=== PATIENT | male | born 1965 | race Caucasian/White ===

== ENCOUNTER → 2016-09-08 09:25 | Outpatient (CLI) | payer MEDICAID ==
[2016-08-04 12:56] VITALS: BMI 26.0
[~2016-09-08 09:25] MED LIST: ATIVAN0.5 MG PO; DURAGESIC1 PATCH .2 TRANSDERM; DURAGESIC1 PATCH .3 TRANSDERM; DURAGESIC1 PATCH .7 TRANSDERM; ENDOCET 10-3251 TAB PO; GABAPENTIN100 MG PO; HYDROCODONE-APA1 TAB PO; IPRAT-ALBUT 0.5-3 ML INH; K-DUR20 MEQ PO; LEVAQUIN750 MG PO; LOPRESSOR25 MG PO; NICODERM C1 PATCH .2 TRANSDERM; PERCOCET 10/3251 TA1 PO; POTASSIUM CHLO10 ME1 PO; PROMETHAZINE W473 M1 PO; PROTONIX40 MG PO; PROVENTIL HFA6.7 GM INH; STERAPRED DS 1210 MG PO; TESSALON PERLE100 MG PO; VITAMIN B650 MG PO; XARELTO15 MG PO; ZOFRAN ODT4 MG/UDTAB PO
== END | disposition home or self-care (01) ==
LOC: D.RAD 09:25
DX: Z09 Encounter for follow-up examination after completed treatment for conditions other than malignant neoplasm (principal)

== ENCOUNTER 2016-09-09 11:30 | Outpatient (CLI) | payer MEDICAID ==
[~2016-09-09] VITALS: Ht 170.2 cm; Wt 70.9 kg
[~2016-09-09 11:30] MED LIST changes: -ATIVAN0.5 MG PO; -DURAGESIC1 PATCH .2 TRANSDERM; -DURAGESIC1 PATCH .3 TRANSDERM; -DURAGESIC1 PATCH .7 TRANSDERM; -PERCOCET 10/3251 TA1 PO; -POTASSIUM CHLO10 ME1 PO; -PROMETHAZINE W473 M1 PO; -VITAMIN B650 MG PO; -ZOFRAN ODT4 MG/UDTAB PO
--- NOTE | 2016-09-09 13:48 | NUR ---
[id number] GREENFIELD CALLED AND NOTIFIED OF PTS PAIN,NEW ORDER RECEIVED FOR DILAUDID 2MG PO NOW AND TO CALL BACK IF PAIN IS NOT BETTER
[2016-09-09] MEDS ORDERED: DURAGESIC1 PATCH .2 TRANSDERM (13:55)
[2016-09-09] MEDS ORDERED: PERCOCET 10/3251 TA1 PO (13:56)
[2016-09-09 14:01] VITALS: BP 97/70; Ht 170.2 cm; Wt 70.9 kg
--- NOTE | 2016-09-09 14:04 | NUR ---
LEFT UPPER CHEST PORT ACCESSED BY RONALD RN WITH A .75 20 GAUGE DENNIS NEEDLE ON THE FIRST ATTEMPT FLUSHED WITHOUT ANY PROBLEMS ALL UNDER STERILE TECHNIQUE INFUSING NS WITHOUT ANY DIFFICULTIES SECURED WITH TEGADERM
--- NOTE | 2016-09-09 20:03 | NUR ---
1450 REPORT FROM HUMERA SMITH R.N. PATIENT RECEIVING 1ST UNIT OF BLOOD VIA LT PORT CHEST WALL. DRESSING C/D/I DIAZ VERY SLEEPY AND RESP NONLABORED. O2 AT 3 L N/C.EYES CLOSED.
--- NOTE | 2016-09-09 20:04 | NUR ---
1535 REMAINS SLEEPING WITH EYES CLOSED BLOOD INFUSING WITHOUT S/S OF BLOOD REACTIONS NOTED.
--- NOTE | 2016-09-09 20:05 | NUR ---
1635 REMAINS DOZING BUT DID ROUSE. NO S/S OF BLOOD REACTIONS NOTED.
--- NOTE | 2016-09-09 20:05 | NUR ---
1705 TRAY SERVED. 1ST UNIT OF BLOOD COMPLETED AND FLUSHED WITH N/S. PORT LEFT NO REDNESS OR SWELLING.
--- NOTE | 2016-09-09 20:06 | NUR ---
1740 BLOOD INFUSING NO S/S OF BLOOD REACTIONS NOTED, LT CHEST WALL NO REDNESS OR SWELLING.
--- NOTE | 2016-09-09 20:06 | NUR ---
1725 2ND UNIT OG BLOOD STARTED WITH NEW BLOOD TUBING AND CHECKED BY 2 R.N.S.
--- NOTE | 2016-09-09 20:07 | NUR ---
1840 REQUESTED A MILK STILL SLEEPY AND DOZING.NO S/S OF BLOOD REACTIONS NOTED.
--- NOTE | 2016-09-09 20:08 | NUR ---
1924 BLOOD 2ND UNIT OF BLOOD COMPLETED AND FLUSHED WITH N/SArsalan JACOBSEN.
--- NOTE | 2016-09-09 20:09 | NUR ---
Alan FLUSHED PORT WITH SALINE AND HEPARIN AND JEANNIE DUCKWORTH DCD WITH CATHETER INTACT.
--- NOTE | 2016-09-09 20:29 | NUR ---
1825 V/S TAKEN. DISCHARGE INSTRCUTIONS GONE OVER AND WENT OVER POST BLOOD TRANSFUSION SHEET.
--- NOTE | 2016-09-09 20:30 | NUR ---
1830 TO HOME VIA W/C WITH FAMILY.
== END 2016-09-09 20:30 | disposition home or self-care (01) ==
LOC: D.OPS 11:30
DX: C34.90 Malignant neoplasm of unspecified part of unspecified bronchus or lung (principal)

== ENCOUNTER 2016-09-30 09:56 | Outpatient (CLI) | payer MEDICAID ==
[~2016-09-30] VITALS: Ht 170.2 cm; Wt 66.4 kg
[~2016-09-30 09:56] MED LIST changes: +DURAGESIC1 PATCH .2 TRANSDERM; +PERCOCET 10/3251 TA1 PO
[2016-09-30 14:45] VITALS: BP 112/67; Ht 170.2 cm; Wt 66.4 kg
--- NOTE | 2016-09-30 15:10 | NUR ---
RECEIVED CARE. SECOND UNIT OF PLATELETS UP WITH NS AND BLOOD TUBING.
--- NOTE | 2016-09-30 15:45 | NUR ---
UP TO BATHROOM, GAIT STEADY, VOIDED WITHOUT DIFFICULTY.
--- NOTE | 2016-09-30 16:00 | NUR ---
SECOND UNIT OF PLATELETS COMPLETED, LINE FLUSHED WITH NS.
--- NOTE | 2016-09-30 16:45 | NUR ---
INFUSAPORT FLUSHED PER PROTOCOL AND DISCONTINUED, NO BLEEDING NOTED. BANDAID OVER SITE. DISCHARGE INSTRUCTIONS GIVEN.
--- NOTE | 2016-09-30 17:00 | NUR ---
VITAL SIGNS STABLE, DISCHARGED HOME VIA .
== END 2016-09-30 17:00 | disposition home or self-care (01) ==
LOC: D.OPS 09:56
DX: D69.6 Thrombocytopenia, unspecified (principal)

== ENCOUNTER 2016-10-05 20:21 | Emergency (ER) | payer MEDICAID ==
[2016-09-30 14:45] VITALS: BMI 22.9
== END 2016-10-05 22:07 | disposition home or self-care (01) ==
LOC: D.ER 20:21
DX: K59.00 Constipation, unspecified (principal); M54.9 Dorsalgia, unspecified; J90 Pleural effusion, not elsewhere classified; J44.9 Chronic obstructive pulmonary disease, unspecified; R79.89 Other specified abnormal findings of blood chemistry; K21.9 Gastro-esophageal reflux disease without esophagitis; I10 Essential (primary) hypertension; C34.90 Malignant neoplasm of unspecified part of unspecified bronchus or lung; F17.200 Nicotine dependence, unspecified, uncomplicated

== ENCOUNTER 2016-10-13 11:11 | Inpatient (IN) | payer MEDICAID ==
[~2016-10-13] VITALS: Ht 170.2 cm; Wt 68.0 kg
--- NOTE | 2016-10-13 11:30 | NUR ---
RECEIVED TO ROOM 2214 AT THIS TIME FROM THE DOCTOR'S OFFICE VIA WHEELCHAIR. PT'S SISTER WITH PT. LEFT CHEST PORT ACCESSED WITH 19G 1 INCH DENNIS NEEDLE AT THIS TIME. PT TOLERATED WITH MINIMAL C/O PAIN. BRISK BLOOD RETURN PRESENT. ASSSESSMENT AND HISTORY OBTAINED PER FLOWSHEET. PAIN LEVEL 10/10 AT THIS TIME. CALL LIGHT IN REACH, WILL CONTINUE WITH PLAN OF CARE.
[2016-10-13 11:39] VITALS: BP 114/62
[2016-10-13] MEDS ORDERED: DURAGESIC1 PATCH .7 TRANSDERM (11:56)
[2016-10-13] MEDS ORDERED: ZOFRAN ODT4 MG/UDTAB PO (11:58)
[2016-10-13] MEDS ORDERED: LOPRESSOR25 MG PO (11:58)
[2016-10-13] MEDS ORDERED: VITAMIN B650 MG PO (11:59)
[2016-10-13] MEDS ORDERED: PROMETHAZINE W473 M1 PO (12:00)
[2016-10-13] MEDS ORDERED: POTASSIUM CHLO10 ME1 PO (12:01)
[2016-10-13] MEDS ORDERED: ATIVAN0.5 MG PO (12:01)
[2016-10-13 12:02] VITALS: BP 114/62; BMI 23.5
--- NOTE | 2016-10-13 12:38 | NUR ---
PT GIVEN PERCOCET 10MG X 2 FOR GENERALIZED DISCOMFORT.
[2016-10-13 12:59] LABS: BASOPHILS 0.3 % (0.0-2.0); EOSINOPHILS 0.3 % (0-7); HEMATOCRIT 23.2 % (42.0-54.0); IMMATURE GRANULOCYTES 4.3 % (0-5); LYMPHOCYTES 4.3 % (15-50); MCH 28.5 pg (26.0-34.0); MCHC 30.6 g/dL (31.0-37.0); MCV 93.2 fL (80.0-100.0); MEAN PLATELET VOLUME 9.2 fL (7.4-10.4); NEUTROPHILS 77.8 % (40-80); RBC 2.49 10x6/uL (4.20-6.10); RDW 16.9 % (11.5-14.5); WBC 17.6 10x3/uL (4.8-10.8)
[2016-10-13 13:02] LABS: HEMOGLOBIN 7.1 g/dL (13.5-17.5); PLATELET COUNT 404 10x3/uL (130-400)
[2016-10-13 13:31] LABS: ALBUMIN 1.8 g/dL (3.4-5.0); ALKALINE PHOSPHATASE 414 U/L (46-116); ALT (SGPT) 16 U/L (10-68); BILIRUBIN - TOTAL 1.02 mg/dL (0.2-1.3); CALC OSMOLALITY 269 mosm/kg (275-300); CALCIUM 8.9 mg/dL (8.5-10.1); CARBON DIOXIDE 33.6 mmol/L (21.0-32.0); CHLORIDE - SERUM 95 mmol/L (98-107); GLUCOSE 168 mg/dL (74-106); POTASSIUM - SERUM 3.7 mmol/L (3.5-5.1); PROTEIN - SERUM 6.9 g/dL (6.4-8.2); SODIUM 133 mmol/L (136-145); UREA NITROGEN 12 mg/dL (7-18); eGFR NON AFRICAN AMERICAN 84 mL/min (90-120)
[2016-10-13 13:52] LABS: MAGNESIUM - SERUM 0.9 mg/dL (1.8-2.4)
--- NOTE | 2016-10-13 15:17 | NUR ---
Patient Name: JESI PORTER Admission Status: Urgent Accout number: [id number] Admission Date: 10-13-2016 : 1965 Admission Diagnosis: Attending: CIERA Current LOS: 1 Anticipated DC Date: 10-17-2016 Planned Disposition: Home with Home Health Primary Insurance: [place] Discharge Planning Comments: CM MET WITH PATIENT REGARDING D/C NEEDS AND PLANS. PATIENT STATED HE LIVES WITH HIS SISTER (BRENNAN) AND SHE WILL DRIVE HIM HOME AT DISCHARGE. PATIENT STATES HE IS INDEPENDENT WITH HIS CARE AND HAS A WALKER, WHEELCHAIR, SHOWER CHAIR, PORTABLE O2, NEBULIZER, AND OXYGEN AT HOME. PATIENT CANNOT REMEMBER WHO SUPPLIES HIS OXYGEN. PATIENTS PCP IS DR. KENT, AND PHARMACY IS [facility]. PATIENT SIGNED WITH [employer]. CM WILL CONTINUE TO FOLLOW PATIENT WITH D/C NEEDS AND PLANS. PCP DR. KENT [facility]- [phone] BRENNAN (SISTER) [phone] Speech Pathologist: Noreen Amaya Is the patient Alert and Oriented? Yes 0 * How many steps to enter\exit or inside your home? 0 0 * PCP DR. KENT 0 * Pharmacy [facility] 0 * Preadmission Environment Home with Family 0 * ADLs Independent 0 * Equipment Nebulizer Oxygen Shower Chair Walker Wheelchair 0 * List name and contact numbers for known caregivers / representatives who currently or will assist patient after discharge: BRENNAN HOPKINS (SISTER) [phone] 0 * Community resources currently utilized None 0 * Additional services required to return to the preadmission environment? Yes 0 * Can the patient safely return to the preadmission environment? Yes 0 * Has this patient been hospitalized within the prior 30 days at any hospital? No 0 Grand Total: 0
[2016-10-13 15:45] VITALS: BP 112/67
--- NOTE | 2016-10-13 18:04 | NUR ---
PRN PERCOCET ADMINISTERED PER ORDER FOR PAIN 06/06. ZOFRAN ADMINISTERED PER ORDER FOR NAUSEA WITH EMESIS, ROUGHLY 10-15 ML. FRIEND AT BEDSIDE. DENIES FURTHER NEEDS. WILL CONTINUE WITH PLAN OF CARE.
[2016-10-13 20:00] VITALS: BP 115/66
--- NOTE | 2016-10-13 20:42 | NUR ---
REC'D. IN BED DENIES ANY DISCOMFORT AT PRESENT TIME.DR GREENFIELD HERE. WILL CONTINUE TO MONITOR FOR ANY CHGES. AND FOLLOE CURRENT PLAN OF CARE.
--- NOTE | 2016-10-13 22:44 | NUR ---
ASLEEP WITH NO DISTRESS NOTED. DOOR OPEN SO NURSE CAN MONITOR. EASY RESPIRATIONS AND NO COMPLAINTS NOTED. THE BED IS LOW, RAILS UP X'S 2 WITH THE CALL LIGHT AT AHND.
[2016-10-14] VITALS (23 sets, daily range): BP systolic 86–148; BP diastolic 53–90; Ht 170.2 cm; Wt 68.0 kg
--- NOTE | 2016-10-14 07:45 | NUR ---
PATIENT RECEIVED ALERT IN HIGH CALDERON POSITION. RESPIRATIONS EVEN AND UNLABORED. RATES PAIN 10/10. SIDE RAILS UP X2. BED IN LOW POSITION. CALL LIGHT IN REACH. WILL CONTINUE TO MONITOR.
--- NOTE | 2016-10-14 08:15 | NUR ---
PATEINT ALERT IN HIGH ACLDERON POSITION. RESPIRATIONS EVEN AND UNLABORED. SCHEDULED MEDICATION ADMINISTERED. PERCOCET ADMINISTERED PER PRN ORDER. NO FURTHER NEEDS VOICED. SIDE RAILS UP X2. BED IN LOW POSITION. CALL LIGHT IN REACH.
[2016-10-14] MEDS ORDERED: DURAGESIC1 PATCH .3 TRANSDERM (11:38)
[2016-10-14 11:54] LABS: BASOPHILS 0.4 % (0.0-2.0); EOSINOPHILS 0.2 % (0-7); HEMATOCRIT 23.1 % (42.0-54.0); IMMATURE GRANULOCYTES 3.5 % (0-5); LYMPHOCYTES 6.1 % (15-50); MCH 28.2 pg (26.0-34.0); MCHC 30.3 g/dL (31.0-37.0); MCV 93.1 fL (80.0-100.0); MONOCYTES 17.6 % (2-11); NEUTROPHILS 72.2 % (40-80); PLATELET COUNT 372 10x3/uL (130-400); RBC 2.48 10x6/uL (4.20-6.10); RDW 17.5 % (11.5-14.5); WBC 22.1 10x3/uL (4.8-10.8)
[2016-10-14 12:39] LABS: ALBUMIN 1.8 g/dL (3.4-5.0); ALKALINE PHOSPHATASE 384 U/L (46-116); ALT (SGPT) 15 U/L (10-68); BILIRUBIN - TOTAL 0.96 mg/dL (0.2-1.3); CALCIUM 8.7 mg/dL (8.5-10.1); CARBON DIOXIDE 32.7 mmol/L (21.0-32.0); CHLORIDE - SERUM 95 mmol/L (98-107); CREATININE - SERUM 1.1 mg/dL (0.6-1.3); MAGNESIUM - SERUM 1.1 mg/dL (1.8-2.4); PHOSPHOROUS 4.5 mg/dL (2.5-4.9); SODIUM 131 mmol/L (136-145); UREA NITROGEN 11 mg/dL (7-18); eGFR NON AFRICAN AMERICAN 75 mL/min (90-120)
[2016-10-14 12:40] LABS: CALC OSMOLALITY 261 mosm/kg (275-300); GLUCOSE 104 mg/dL (74-106); POTASSIUM - SERUM 4.7 mmol/L (3.5-5.1)
--- NOTE | 2016-10-14 12:45 | NUR ---
PATIENT ALERT IN BED EATING LUNCH. TOLERATING WELL. SIDE RAILS UP X2. BED IN LOW POSITION. CALL LIGHT IN REACH.
--- NOTE | 2016-10-14 14:20 | NUR ---
1ST UNIT PRBC INITIATED PER ORDER. INFUSING TO LEFT INFUSAPORT WITHOUT DIFFICULTY. VITAL SIGNS STABLE. SIDE RAILS UP X1. BED IN LOW POSITION. CALL LIGHT IN REACH.
--- NOTE | 2016-10-14 17:05 | NUR ---
FIRST UNIT PRBC COMPLETE WITHOUT DIFFICULTIES. VITAL SIGNS STABLE. SIDE RAILS UP X2. BED IN LOW POSITION. CALL LIGHT IN REACH.
--- NOTE | 2016-10-14 18:15 | NUR ---
SECOND UNIT PRBC INITIATED. TRANSFUSING TO LEFT INFUSAPORT WITHOUT DIFFICULTY. VITAL SIGNS STABLE. SIDE RAILS UP X2. BED IN LOW POSITION. CALL LIGHT IN REACH.
--- NOTE | 2016-10-14 19:40 | NUR ---
PATIENT RECEIVING BLOOD. NO SIGNS OF DISTRESS. BROUGHT PATIENT A DRINK PER HIS REQUEST. PATIENT DENIES OTHER NEEDS AT THIS TIME. BED IN LOWEST POSITION AND CALL LIGHT WITHIN REACH.
[2016-10-15 01:17] VITALS: BP 95/71
[2016-10-15 04:00] VITALS: BP 90/63
[2016-10-15 05:25] LABS: BASOPHILS 0.7 % (0.0-2.0); EOSINOPHILS 0.5 % (0-7); HEMATOCRIT 31.4 % (42.0-54.0); HEMOGLOBIN 10.4 g/dL (13.5-17.5); IMMATURE GRANULOCYTES 5.2 % (0-5); MCH 29.5 pg (26.0-34.0); MCHC 33.1 g/dL (31.0-37.0); MEAN PLATELET VOLUME 9.5 fL (7.4-10.4); MONOCYTES 20.9 % (2-11); NEUTROPHILS 68.7 % (40-80); PLATELET COUNT 398 10x3/uL (130-400); RBC 3.53 10x6/uL (4.20-6.10); RDW 18.3 % (11.5-14.5); WBC 21.3 10x3/uL (4.8-10.8)
[2016-10-15 05:58] LABS: ALBUMIN 1.9 g/dL (3.4-5.0); ANION GAP 8.2 mmol/L (8-16); BILIRUBIN - TOTAL 2.07 mg/dL (0.2-1.3); CALCIUM 9.4 mg/dL (8.5-10.1); CARBON DIOXIDE 32.6 mmol/L (21.0-32.0); CREATININE - SERUM 1.2 mg/dL (0.6-1.3); PHOSPHOROUS 4.5 mg/dL (2.5-4.9); PROTEIN - SERUM 7.6 g/dL (6.4-8.2)
[2016-10-15 06:00] LABS: MAGNESIUM - SERUM 1.5 mg/dL (1.8-2.4); POTASSIUM - SERUM 3.8 mmol/L (3.5-5.1)
[2016-10-15 06:22] LABS: APPEARANCE CLEAR (CLEAR); BILIRUBIN NEGATIVE (NEGATIVE); COLOR YELLOW (YELLOW); GLUCOSE NEGATIVE (NEGATIVE); KETONE NEGATIVE (NEGATIVE); LEUKOCYTE ESTERASE NEGATIVE (NEGATIVE); NITRITE NEGATIVE (NEGATIVE); PROTEIN NEGATIVE (NEGATIVE); SPECIFIC GRAVITY 1.005 (1.005-1.020); UROBILINOGEN NORMAL (NORMAL)
[2016-10-15 06:25] LABS: BACTERIA NONE SEEN /hpf (NONE SEEN); EPITHELIAL CELLS NSEEN /hpf (0-5); RED CELLS - URINE 0-5 /hpf (0-5); WHITE CELLS - URINE NSEEN /hpf (0-5)
--- NOTE | 2016-10-15 07:15 | NUR ---
PATIENT RECEIVED IN HIGH CALDERON POSITION ALERT AND RESTING QUIETLY. RESPIRATIONS EVEN AND UNLABORED. SIDE RAILS UP X2. BED IN LOW POSITION. CALL LIGHT IN REACH.
[2016-10-15 08:24] VITALS: BP 139/86
--- NOTE | 2016-10-15 09:07 | NUR ---
PATIENT ALERT IN HIGH CALDERON POSITION. RESPIRATIONS EVEN AND UNLABORED. TOLERATED BREAKFAST. SCHEDULED MEDICATION ADMINISTERED. SIDE RAILS UP X2. BED IN LOW POSITION. CALL LIGHT IN REACH.
--- NOTE | 2016-10-15 11:25 | NUR ---
PATIENT ALERT IN BED. RESPIRATIONS EVEN AND UNLABORED. PHYSICIAN AT BEDSIDE. SIDE RAILS UP X2. BED IN LOW POSITION. CALL LIGHT IN REACH.
[2016-10-15 12:42] VITALS: BP 119/90
--- NOTE | 2016-10-15 14:45 | NUR ---
PATIENT ALERT IN BED. SCHEDULED MEDICATION ADMINISTERED. SIDE RAILS UP X2. BED IN LOW POSITION. CALL LIGHT IN REACH.
--- NOTE | 2016-10-15 16:55 | NUR ---
PATIENT ALERT IN MID CALDERON POSITION. SCHEDULED MEDICATION ADMINISTERED. DENIES NEEDS .SIDE RAILS UP X2 .BED IN LOW POSITION. CALL LIGHT IN REACH.
[2016-10-15 18:39] VITALS: BP 107/68
--- NOTE | 2016-10-15 19:30 | NUR ---
PATIENT RESTING WITH EYES CLOSED. NO VISUAL SIGNS OF DISTRESS. BED IN LOWEST POSITION AND CALL LIGHT WITHIN REACH.
[2016-10-15 20:49] VITALS: BP 142/79
[2016-10-16] VITALS: BP 120/86
[2016-10-16 02:36] LABS: BASOPHILS 0.2 % (0.0-2.0); EOSINOPHILS 0.4 % (0-7); HEMATOCRIT 28.7 % (42.0-54.0); HEMOGLOBIN 9.2 g/dL (13.5-17.5); IMMATURE GRANULOCYTES 3.4 % (0-5); LYMPHOCYTES 5.2 % (15-50); MCH 28.8 pg (26.0-34.0); MCHC 32.1 g/dL (31.0-37.0); MCV 89.7 fL (80.0-100.0); MEAN PLATELET VOLUME 9.4 fL (7.4-10.4); MONOCYTES 13.8 % (2-11); PLATELET COUNT 392 10x3/uL (130-400); WBC 24.8 10x3/uL (4.8-10.8)
[2016-10-16 03:02] LABS: ALBUMIN 1.7 g/dL (3.4-5.0); ANION GAP 4.8 mmol/L (8-16); BILIRUBIN - TOTAL 1.22 mg/dL (0.2-1.3); CALCIUM 9.1 mg/dL (8.5-10.1); CREATININE - SERUM 1.3 mg/dL (0.6-1.3); MAGNESIUM - SERUM 1.2 mg/dL (1.8-2.4); POTASSIUM - SERUM 3.8 mmol/L (3.5-5.1); PROTEIN - SERUM 7.1 g/dL (6.4-8.2)
[2016-10-16 04:00] VITALS: BP 103/77
--- NOTE | 2016-10-16 07:20 | NUR ---
PATIENT RECEIVED IN LOW CALDERON POSITION RESTING QUIETLY WITH EYES CLOSED. RESPIRATIONS EVEN AND UNLABORED. SIDE RAILS UP X2. BED IN LOW POSITION. CALL LIGHT IN REACH.
[2016-10-16 08:07] VITALS: BP 103/73
--- NOTE | 2016-10-16 08:10 | NUR ---
PATIENT IN HIGH CALDERON POSITION EATING BREAKFAST. TOLERATING WELL. SCHEDULED MEDICATION ADMINISTERED. 2GM MAG RIDER INITIATED PER ELECTROLYTE PROTOCOL. PATIENT DENIES NEEDS. SIDE RAILS UPX 2. BED IN LOW POSITION. CALL LIGHT IN REACH.
--- NOTE | 2016-10-16 10:55 | NUR ---
PATIENT IN LOW CALDERON POSITION RESTING WITH EYES CLOSED. RESPIRATIONS EVEN AND UNLABORED. WAKES EASY. SCHEDULED MEDICATION ADMINISTERED. SIDE RAILS UP X2. BED IN LOW POSITION. CALL LIGHT IN REACH.
[2016-10-16 12:03] VITALS: BP 100/68
--- NOTE | 2016-10-16 13:10 | NUR ---
ALERT IN HIGH CALDERON POSITION. RESPIRATIONS EVEN AND UNLABORED. ORDERED LAB DRAWN FROM PORT. FLUSHES EASY WITH BRISK BLOOD RETURN PRESENT. DENIES NEEDS. CALL LIGHT IN REACH. BED IN LOW POSITION.
[2016-10-16 16:07] VITALS: BP 126/69
--- NOTE | 2016-10-16 17:00 | NUR ---
PATIENT IN MID CALDERON POSITION RESTING WITH EYES CLOSED. RESPIRATIONS EVEN AND UNLABORED. WAKES EASY. SCHEDULED MEDICATION ADMINISTERED. DENIES NEEDS. SIDE RAILS UP X2. BED IN LOW POSITION. CALL LIGHT IN REACH.
--- NOTE | 2016-10-16 19:50 | NUR ---
PATIENT RESTING IN BED AND DENIES NEEDS AT THIS TIME. BED IN LOWEST POSITION AND CALL LIGHT WITHIN REACH.
[2016-10-16 21:43] VITALS: BP 151/80
[2016-10-17 05:00] VITALS: BP 145/75
[2016-10-17 05:24] LABS: HEMATOCRIT 27.2 % (42.0-54.0); HEMOGLOBIN 8.5 g/dL (13.5-17.5); MCH 28.8 pg (26.0-34.0); MCHC 31.3 g/dL (31.0-37.0); MCV 92.2 fL (80.0-100.0); MEAN PLATELET VOLUME 9.2 fL (7.4-10.4); PLATELET COUNT 391 10x3/uL (130-400); RBC 2.95 10x6/uL (4.20-6.10); RDW 17.9 % (11.5-14.5); WBC 25.3 10x3/uL (4.8-10.8)
[2016-10-17 05:28] LABS: EOSINOPHILS 1 % (0-7); LYMPHOCYTES 2 % (15-50); MONOCYTES 14 % (2-11); NEUTROPHILS 81 % (40-80); PLATELET ESTIMATE NORMAL
[2016-10-17 05:38] LABS: ALBUMIN 1.6 g/dL (3.4-5.0); ANION GAP 7.1 mmol/L (8-16); BILIRUBIN - TOTAL 1.52 mg/dL (0.2-1.3); CALCIUM 9.5 mg/dL (8.5-10.1); CARBON DIOXIDE 32.8 mmol/L (21.0-32.0); CREATININE - SERUM 1.2 mg/dL (0.6-1.3); POTASSIUM - SERUM 3.9 mmol/L (3.5-5.1); PROTEIN - SERUM 6.9 g/dL (6.4-8.2)
[2016-10-17 05:39] LABS: MAGNESIUM - SERUM 1.4 mg/dL (1.8-2.4)
--- NOTE | 2016-10-17 07:00 | NUR ---
REPORT RECEIVED FROM DIRECTOR OF CONSTRUCTION NURSE. CALL LIGHT IN REACH.
--- NOTE | 2016-10-17 08:10 | NUR ---
ASSESSMENT COMPLETED. PERCOCET 2 PO WIT AM MEDS ADMINISTERED D/T PAIN OF 7. CONFUSED AT THIS TIME. REORIENTED PER VERBAL STIMULI. BED ALARM TURNED ON. CALL LIGHT IN REACH. WILL CONTINUE WITH PLAN OF CARE.
[2016-10-17 08:34] VITALS: BP 119/83
--- NOTE | 2016-10-17 09:20 | NUR ---
STATES PAIN IS STILL AT A 7. WILL CONTINUE TO MONITOR.
--- NOTE | 2016-10-17 11:50 | NUR ---
FLORAJEN PO AND PERCOCET 2 PO PER C/O PAIN OF 7. PATIENT IS CONTINUOUSLY COUGHING EVERYWHERE SO I OFFERED PROMETHAZINE W/CODEINE AND PATIENT STATED HE WOULD TAKE IT. ALSO CHANGED OUT DURAGESIC PATCH OUT. CALL LIGHT IN REACH. BED ALARM ON.
[2016-10-17 12:31] VITALS: BP 100/70
--- NOTE | 2016-10-17 12:31 | NUR ---
CONFUSED.HAS BEEN UP TO BATHROOM AND BACK TO BED.
--- NOTE | 2016-10-17 14:20 | NUR ---
SISTER AT BEDSIDE. NO NEEDS VOICED AT THIS TIME. CALL LIGHT IN REACH.
[2016-10-17 14:32] VITALS: BP 102/61
--- NOTE | 2016-10-17 14:58 | NUR ---
NUTRITION MONITORING & EVAL CHART REVIEWED, PT VISIT. TOLERATING REG DIET, POOR INTAKE AT THIS TIME BUT PT STATES HIS APPETITE IS IMPROVING. RD FOLLOWING
--- NOTE | 2016-10-17 15:53 | NUR ---
STATES THAT HIS PAIN IS AN 8 AT THIS TIME. PERCOCET 2 PO. STUDENT NURSE AT BEDSIDE. CALL LIGHT IN REACH.
--- NOTE | 2016-10-17 17:21 | NUR ---
PAIN IS NOW AT A 2. NO OTHER NEEDS VOICED. BED ALARM ON. CALL LIGHT IN REACH.
--- NOTE | 2016-10-17 18:33 | NUR ---
NO CHANGES IN INITIAL ASSESSMENT. BED ALARM ON. CALL LIGHT IN REACH. WILL CONTINUE WITH PLAN OF CARE.
[2016-10-17 19:43] VITALS: BP 105/80
--- NOTE | 2016-10-17 20:06 | NUR ---
PATIENT RESTING IN BED AND SEEMS CONFUSED AT TIMES. PATIENT IS LOOKING FOR HIS SISTER WHO HAS GONE HOME. I REORIENTED THE PATIENT AND EXPLAINED THAT HIS SISTER WAS HERE EARLIER BUT HAS GONE HOME FOR THE NIGHT. PATIENT DENIES OTHER NEEDS AT THIS TIME. BED IS IN LOWEST POSITION AND CALL LIGHT IS WITHIN REACH.
[2016-10-17 20:53] VITALS: BP 119/62
[2016-10-18] VITALS: BP 129/75
[2016-10-18 04:00] VITALS: BP 123/76
[2016-10-18 06:51] LABS: BASOPHILS 0.4 % (0.0-2.0); EOSINOPHILS 0.4 % (0-7); HEMATOCRIT 31.2 % (42.0-54.0); HEMOGLOBIN 9.7 g/dL (13.5-17.5); IMMATURE GRANULOCYTES 3.4 % (0-5); LYMPHOCYTES 2.5 % (15-50); MCH 29.4 pg (26.0-34.0); MCHC 31.1 g/dL (31.0-37.0); MCV 94.5 fL (80.0-100.0); MEAN PLATELET VOLUME 10.1 fL (7.4-10.4); MONOCYTES 13.9 % (2-11); NEUTROPHILS 79.4 % (40-80); PLATELET COUNT 569 10x3/uL (130-400); RDW 18.1 % (11.5-14.5); WBC 37.6 10x3/uL (4.8-10.8)
[2016-10-18 06:58] LABS: ALBUMIN 1.8 g/dL (3.4-5.0); ANION GAP 17.2 mmol/L (8-16); BILIRUBIN - TOTAL 1.19 mg/dL (0.2-1.3); CALCIUM 10.4 mg/dL (8.5-10.1); CARBON DIOXIDE 26.9 mmol/L (21.0-32.0); CREATININE - SERUM 1.3 mg/dL (0.6-1.3); POTASSIUM - SERUM 4.1 mmol/L (3.5-5.1); PROTEIN - SERUM 7.9 g/dL (6.4-8.2)
--- NOTE | 2016-10-18 07:00 | NUR ---
REPORT RECEIVED FROM SHIPPING LEAD PERSON NURSE. CALL LIGHT IN REACH.
--- NOTE | 2016-10-18 07:10 | NUR ---
ASSESSMENT COMPLETED. C/O PAIN OF 7. PERCOCET 2 PO. STILL SLIGHTLY CONFUSED AT THIS TIME. BED ALARM ON. CALL LIGHT IN REACH. WILL CONTINUE WITH PLAN OF CARE.
[2016-10-18 08:02] VITALS: BP 133/96
--- NOTE | 2016-10-18 08:32 | NUR ---
AM MEDS ADMINISTERED. CALL LIGHT IN REACH.
--- NOTE | 2016-10-18 10:25 | NUR ---
BED ALARM GOING OFF. RAN IN ROOM AND PATIENT WAS OOB TALKING ON THE PHONE. ASSISTED HIM BACK IN BED AND EXPLAINED TO HIM TO CALL WHEN HE NEEDED SOMETHING. VERBALIZED UNDERSTANDING. BED ALARM ON. CALL LIGHT AND TELEPHONE WITHIN REACH.
--- NOTE | 2016-10-18 11:16 | NUR ---
CM REASSESSMENT NOTE: PATIENT SIGNED THE ABBY FORM WITH [facility] AND REFERRAL HAS BEEN SENT
--- NOTE | 2016-10-18 11:58 | NUR ---
FLORAJEN PO. PERCOCET AND COUGH MED PO. CALL LIGHT IN REACH. BED ALARM ON.
[2016-10-18 12:39] VITALS: BP 94/63
--- NOTE | 2016-10-18 13:22 | NUR ---
SHOWER GIVEN PER CN. BED ALARM TURNED BACK ON. CALL LIGHT IN REACH.
--- NOTE | 2016-10-18 13:27 | NUR ---
TO CT VIA WC.
--- NOTE | 2016-10-18 14:00 | NUR ---
BACK IN ROOM AT THIS TIME. DENIES NEEDS. BED ALARM ON. CALL LIGHT IN REACH.
--- NOTE | 2016-10-18 15:10 | NUR ---
DENIES NEEDS AT THIS TIME. CALL LIGHT IN REACH, SRX2 WITH BED IN LOWEST POSITION AND WHEELS LOCKED. RESPIRATIONS EVEN WITH OXYGEN ON 5L VIA NC. LUNG SOUNDS ASCULTATED AND CRACKLES IN RUL, RLL, PAXTON, AND LML. LLL DIMINISHED. WILL CONTINUE WITH PLAN OF CARE.
--- NOTE | 2016-10-18 15:58 | NUR ---
NEW ORDERS CARRIED OUT PER DR. JOHNSON'S ORDERS. PERCOCET AND COUGH MED ALSO GIVEN TO PATIENT.
[2016-10-18 16:30] VITALS: BP 75/54
--- NOTE | 2016-10-18 17:32 | NUR ---
VANCOMYCIN IVPB. SISTER AT BEDSIDE. CALL LIGHT IN REACH.
--- NOTE | 2016-10-18 18:36 | NUR ---
DURAGESIC PATCH APPLIED TO LEFT UPPER BACK. NO CHANGES IN INITIAL ASSESSMENT. BED ALARM ON. CALL LIGHT IN REACH. WILL CONTINUE WITH PLAN OF CARE.
[2016-10-18 19:00] VITALS: BP 78/59
[2016-10-19] VITALS: BP 86/53
[2016-10-19 04:00] VITALS: BP 75/52
--- NOTE | 2016-10-19 04:51 | NUR ---
PATIENT USING URIANAL, 675 OUT. PATIENT DENIES OTHER NEEDS AT THIS TIME. BED IN LOWEST POSITION AND CALL LIGHT WITHIN REACH.
[2016-10-19 05:50] LABS: BASOPHILS 0.2 % (0.0-2.0); EOSINOPHILS 0 % (0-7); HEMOGLOBIN 9.3 g/dL (13.5-17.5); IMMATURE GRANULOCYTES 1.8 % (0-5); LYMPHOCYTES 1.5 % (15-50); MCH 28.7 pg (26.0-34.0); MCV 92.6 fL (80.0-100.0); MEAN PLATELET VOLUME 9.9 fL (7.4-10.4); NEUTROPHILS 93.5 % (40-80); PLATELET COUNT 458 10x3/uL (130-400); RBC 3.24 10x6/uL (4.20-6.10); RDW 17.9 % (11.5-14.5); WBC 30.7 10x3/uL (4.8-10.8)
[2016-10-19 06:13] LABS: ALBUMIN 1.7 g/dL (3.4-5.0); BILIRUBIN - TOTAL 1.4 mg/dL (0.2-1.3); CREATININE - SERUM 1.2 mg/dL (0.6-1.3); PROTEIN - SERUM 7.6 g/dL (6.4-8.2)
[2016-10-19 06:25] LABS: ANION GAP 6.1 mmol/L (8-16); CARBON DIOXIDE 35.1 mmol/L (21.0-32.0); POTASSIUM - SERUM 3.2 mmol/L (3.5-5.1)
--- NOTE | 2016-10-19 07:30 | NUR ---
REPORT RECEIVED FROM GUIDE TRAVEL NURSE. CALL LIGHT IN REACH.
--- NOTE | 2016-10-19 07:50 | NUR ---
WALKED IN ROOM TO GIVE PATIENT PAIN MEDS AND COUGH MED AND HE WAS STANDING UP BY THE SIDE OF THE BED VOIDING IN HIS UPDRAFT MASK. ASSISTED PATIENT BACK TO BED. MEDS GIVEN. SHOWER GIVEN PER MANAGER MORTGAGE. FLOOR MOPPED AND IV TUBING CHANGED PER STUDENT NURSE AND INSTRUCTOR. BED ALARM TURNED BACK. CALL LIGHT IN REACH. WILL CONTINUE WITH PLAN OF CARE.
[2016-10-19 08:15] VITALS: BP 109/68
--- NOTE | 2016-10-19 09:22 | NUR ---
DID NOT SAVE PAIN MED AND COUGH MEDS THIS MORNING BECAUSE OF TRYING TO HELP PATIENT GET BACK IN BED ANG GET CLEANED. RESCANNED NOW BUT RETIMED.
--- NOTE | 2016-10-19 10:44 | NUR ---
PT SEEN FOR SEWER PIPE LAYER HELPER. NO COMPLAINTS AT PRESENT. INSTRUCTED PT TO LEAVE IV AND PORT ALONE DUE TO EVERY TIME HE UNHOOKS IT HE RUNS THE CHANCE OF INFECTION. BED ALARM ON FOR SAFETY. CALL LIGHT IN REACH
--- NOTE | 2016-10-19 12:18 | NUR ---
CENTRAL LINE DRSG CHANGED USING STERILE TECHNIQUES. COUGH MED AND PERCOCET PO. CALL LIGHT IN REACH.
[2016-10-19 12:26] VITALS: BP 104/61
--- NOTE | 2016-10-19 14:19 | NUR ---
LYING IN BED WITH EYES CLOSED. RESP EVEN AND UNLABORED. CALL LIGHT IN REACH.
[2016-10-19 15:40] VITALS: BP 97/72
--- NOTE | 2016-10-19 16:36 | NUR ---
CONTINUES TO TRY TO GET OUT OF BED. UNHOOKING IV FLUIDS AND TAKING OFF O2. PUSHING ME AT THIS TIME. AFTERNOON MEDS ADMINISTERED WITH ATIVAN, PERCOCET, AND PROMETHAZINE WITH CODEINE. BACK IN BED. ALARM ON. CALL LIGHT IN REACH.
--- NOTE | 2016-10-19 18:01 | NUR ---
NO CHANGES IN INITIAL ASSESSMENT. BED ALARM ON. CALL LIGHT IN REACH. WILL CONTINUE WITH PLAN OF CARE.
[2016-10-19 19:00] VITALS: BP 104/71
--- NOTE | 2016-10-19 19:40 | NUR ---
SISTER AT BEDSIDE AND DENIES NEEDS AT THIS TIME. BED IN LOWEST POSITION AND CALL LIGHT WITHIN REACH.
[2016-10-20] VITALS: BP 90/57
--- NOTE | 2016-10-20 00:30 | NUR ---
RESTING WITH EYES CLOSED, RESP WITH EASE, BED ALARM ON, SR'S UP, CL IN REACH, WILL MONITOR
--- NOTE | 2016-10-20 02:15 | NUR ---
BED ALARM SOUNDING, PT UP ON SIDE OF BED UNDRESSED, STATES "THAT GIRL THAT WAS IN HERE ALREADY LEFT", EASILY CALMED AND RETURNED TO BED, NO ACUTE PHYSICAL DISTRESS NOTED, BED ALARM RESET, SR'S UP, CL IN REACH, DOOR OPEN FOR EASY MONITORING
--- NOTE | 2016-10-20 03:52 | NUR ---
VANC HELD DUE TO TROUGH OF 23.7, WILL REPORT TO DAY SHIFT
[2016-10-20 04:00] VITALS: BP 99/68
--- NOTE | 2016-10-20 07:00 | NUR ---
PT RECEIVED SITTING UP IN BED WITH EYES OPEN. A&O X4 WITH NO CONFUSION NOTED AT THIS TIME. PT ABLE TO VOICE NEEDS, NO COMPLAINTS OR NEEDS VOICED AT THIS TIME. CALL LIGHT AND H2O IN PT REACH. SIDE RAILS UP X2.
[2016-10-20 08:08] LABS: BASOPHILS 0.1 % (0.0-2.0); EOSINOPHILS 0 % (0-7); HEMOGLOBIN 8.2 g/dL (13.5-17.5); IMMATURE GRANULOCYTES 1.2 % (0-5); LYMPHOCYTES 1.4 % (15-50); MCH 28.7 pg (26.0-34.0); MCHC 31.5 g/dL (31.0-37.0); MCV 90.9 fL (80.0-100.0); MEAN PLATELET VOLUME 9.9 fL (7.4-10.4); MONOCYTES 5.2 % (2-11); NEUTROPHILS 92.1 % (40-80); PLATELET COUNT 433 10x3/uL (130-400); RBC 2.86 10x6/uL (4.20-6.10); RDW 18.1 % (11.5-14.5)
[2016-10-20 08:20] LABS: ALBUMIN 1.6 g/dL (3.4-5.0); BILIRUBIN - TOTAL 0.77 mg/dL (0.2-1.3); CARBON DIOXIDE 33.9 mmol/L (21.0-32.0); CREATININE - SERUM 1.4 mg/dL (0.6-1.3); PROTEIN - SERUM 6.8 g/dL (6.4-8.2)
[2016-10-20 08:27] LABS: ANION GAP 10.3 mmol/L (8-16)
[2016-10-20 08:29] LABS: POTASSIUM - SERUM 2.2 mmol/L (3.5-5.1)
[2016-10-20 08:35] VITALS: BP 85/56
--- NOTE | 2016-10-20 09:00 | NUR ---
PT ATTEMPTED TO USE TOILET X1 ASSIST, INCONTINENT BLADDER EPISODE NOTED. PT STATES, "I WASN'T ABLE TO MAKE IT." PT ASSISTED IN PERSONAL HYGEINE AND CLEAN CLOTHING PROVIDED. NO S/S OF DISTRESS NOTED AT THIS TIME. RESP EVEN AND UNLABORED. PT VOICES 8/10 ACHING PAIN TO BACK AND REQUESTS PRN PAIN MEDICATION. PT ASSISTED BACK TO BED. CALL LIGHT AND H20 IN REACH. SIDE RAILS UP X2.
--- NOTE | 2016-10-20 09:40 | CN ---
PATIENT NAME:JESI PEARSON MEDICAL RECORD: [id number] : 67 LOCATION:D.[id number] ADMIT DATE: 10/13/16 ACCOUNT: [id number] CONSULTING PHYSICIAN: ANA JOHNSON MD REFERRING PHYSICIAN: LUIS GREENFIELD MD DATE OF CONSULTATION: 10/18/2016 Consultation Note CONSULT REQUESTING PHYSICIAN: Luis Greenfield MD. REASON FOR CONSULTATION: Pneumonia, pleural effusion, worsening chest radiograph HISTORY OF PRESENT ILLNESS: Mr. Pearson is a 51-year-old gentleman, who has a stage IV CA of the lung, was admitted from Dr. Greenfield's office with nausea, vomiting as well as poor appetite and generalized weakness. Chest radiograph showed infiltrate and the repeat chest radiograph showed that he has worsening right-sided pleural effusion. According to the patient, he has shortness of breath with mild exertion. He is feeling very weak and lethargic. REVIEW OF SYSTEMS: Mainly in the history of present illness. PAST MEDICAL HISTORY: 1. History of right pleural effusion and pericardial effusion. 2. COPD. 3. Stage IV CA of the lung. 4. History of pneumonia. 5. Chronic hypoxic respiratory failure. PAST SURGICAL HISTORY: 1. He is status post pericardial window. 2. He has a port placement. 3. He is status post thoracentesis. ALLERGIES: There are no known drug allergies. PRESENT MEDICATIONS: He is on Levaquin 500 mg a day. His all other medication is reviewed. Xarelto. PERSONAL AND SOCIAL HISTORY: The patient is an ex-smoker, he quit 2 months ago. He is a nondrinker. FAMILY HISTORY: Significant for cardiovascular disease. PHYSICAL EXAMINATION: GENERAL: Now, the patient is lying comfortably in bed. He is not in acute distress. VITAL SIGNS: The blood pressure is 94/63, pulse is 109, respirations 18, temperature is 97.9, T-max is 100.4, SPO2 is 96% on 5 liters nasal cannula. HEENT: Conjunctiva is pale. Sclerae nonicteric. NECK: Supple. No JVD. CHEST: The chest excursion is minimal on both sides. There are bilateral crackles. Wheeze on forceful expiration. HEART: Rhythm regular, normal sound, no murmur. CONSULT REPORT [id number] JESI PEARSON ABDOMEN: Soft, bowel sounds present. No hepatosplenomegaly. RECTAL: Deferred. EXTREMITIES: No cyanosis, no clubbing, no pedal edema. SKIN: Warm, normal turgor. CENTRAL NERVOUS SYSTEM: The patient is awake and alert. There are no obvious cranial nerve abnormality. The gait was not tested. IMAGING: CT scan of the chest: 1. There is trace bilateral pleural effusion. There is progression of primary lung cancer with diffuse metastatic disease throughout both lungs. 2. Diffuse ground-glass opacities throughout the left lung. 3. Trace pleural effusion. 4. Mediastinal lymphadenopathy. There is decreased in pericardial effusion. LABORATORY DATA: CBC: The WBC is 37.6, hemoglobin 9.7, hematocrit 31.2, platelet count is 569. Chemistry: Sodium 135, potassium 4.1, BUN is 14, creatinine 1.3. Total bilirubin is 1.19, alkaline phosphatase 559. Albumin is 1.6. IMPRESSION: 1. Pneumonia, bilateral, most likely hospital-acquired pneumonia with recent hospitalization. 2. Small bilateral pleural effusion. 3. Metastatic carcinoma of the lung. The pneumonia could be aspiration with recent nausea and vomiting. 4. Acute exacerbation of chronic obstructive pulmonary disease. 5. Vqlho-sp-zlezpyj hypoxic respiratory failure. 6. Leukocytosis. 7. Fever, consider sepsis. 8. History of pericardial effusion. 9. History of deep venous thrombosis. RECOMMENDATIONS: 1. I will adjust the dose of Levaquin. Start him on vancomycin, start him on Zosyn and increased the dose of Lasix, Hep-Lock IV. 2. Supplemental oxygen, Brovana and budesonide nebulizer. 3. Albuterol ipratropium nebulizer and we will start methylprednisolone IV. Overall prognosis is guarded. Adjust the dose of Xarelto. Dr. Greenfield, once again, thanks for involving me in the care of Mr. Pearson. TRANSINT:[id number] Voice Confirmation ID: [id number] DOCUMENT ID: [id number] ANA JOHNSON MD at 0940 CC: LIUS GREENFIELD MD [id number] DICTATION DATE: 10/18/16 1517 ASSEMBLY CLEANER: 10/18/16 3649 ADM IN [place] [id number] [place] [address]
--- NOTE | 2016-10-20 11:00 | NUR ---
PT RESTING IN BED. RESIDENT STATES PRN PAIN MEDICATION CONTINUES TO BE EFFECTIVE. DENIES ANY PAIN OR DISCOMFORT AT THIS TIME. CONTINUES WITH O2 @ 4LPM PER NC. BED ALARM ON. CALL LIGHT AND H20 IN REACH. SIDE RAILS UP X2.
--- NOTE | 2016-10-20 11:57 | NUR ---
PT SEEN FOR WEEKEND RECEPTIONIST. RESTING QUIETLY WITH EYES CLOSED WITH NO SOB NOTED. RESP EVEN AND UNLABORED. LUNG SOUNDS CLEAR LEFT AND DIMINISHED RIGHT SIDE. BED ALARM ON FOR SAFETY WITH OXYGEN AT 4LNC. INFUSAPORT NOTED LEFT CHEST WITH DRESSING/BIOPATCH IN PLACE DATED 10/19/16. CALL LIGHT IN REACH
--- NOTE | 2016-10-20 13:00 | NUR ---
PT RESTING IN BED WITH EYES CLOSED. NO S/S OF DISTRESS NOTED. RESP EVEN AND UNLABORED. AROUSES EASILY TO VERBAL STIMULI. CALL LIGHT AND H2O IN REACH. SIDE RAILS UP X2.
[2016-10-20 13:31] VITALS: BP 88/49
--- NOTE | 2016-10-20 15:00 | NUR ---
PT SITTING UP IN BED. FAMILY VISITORS AT BEDSIDE. NO S/S OF DISTRESS. DENIES DISCOMFORT OR PAIN AT THIS TIME. PLEASANT MOOD NOTED. CALL LIGHT AND H2O IN PT REACH. SIDE RAILS UP X2.
--- NOTE | 2016-10-20 16:02 | NUR ---
LUNG SOUNDS ASSESSED, RONCHI NOTED BILATERALLY.
--- NOTE | 2016-10-20 16:15 | NUR ---
PT B/P 88/49, IV LASIX HELD.
[2016-10-20 16:17] VITALS: BP 95/49
--- NOTE | 2016-10-20 17:00 | NUR ---
PT SITTING UP IN BED IN ROOM. NO S/S OF DISTRESS NOTED. RESP EVEN AND UNLABORED AT THIS TIME. PT RECEIVED PRN PAIN MEDICATION @ 1356, CURRENTLY DENIES PAIN OR DISCOMFORT AT THIS TIME, STATING, "IT HELPED A LOT." CALL LIGHT AND H20 IN REACH. SIDE RAILS UP X2. BED ALARM ON.
--- NOTE | 2016-10-20 19:03 | NUR ---
PT RESTING IN BED WITH EYES CLOSED. NO S/S OF DISTRESS NOTED. RESP EVEN AND UNLABORED. CALL LIGHT AND H2O IN REACH. BED REAILS UP X2.
[2016-10-20 20:00] VITALS: BP 110/71
[2016-10-21 03:00] VITALS: BP 103/49
[2016-10-21 05:55] LABS: BASOPHILS 0 % (0.0-2.0); EOSINOPHILS 0 % (0-7); HEMATOCRIT 23.7 % (42.0-54.0); HEMOGLOBIN 7.6 g/dL (13.5-17.5); LYMPHOCYTES 1.1 % (15-50); MCH 29.3 pg (26.0-34.0); MCHC 32.1 g/dL (31.0-37.0); MCV 91.5 fL (80.0-100.0); MEAN PLATELET VOLUME 9.8 fL (7.4-10.4); MONOCYTES 7.6 % (2-11); NEUTROPHILS 90.3 % (40-80); PLATELET COUNT 430 10x3/uL (130-400); RBC 2.59 10x6/uL (4.20-6.10); RDW 18.6 % (11.5-14.5); WBC 21.6 10x3/uL (4.8-10.8)
[2016-10-21 06:26] LABS: ALBUMIN 1.8 g/dL (3.4-5.0); ANION GAP 8.3 mmol/L (8-16); BILIRUBIN - TOTAL 0.64 mg/dL (0.2-1.3); CALCIUM 9.8 mg/dL (8.5-10.1); CARBON DIOXIDE 33.9 mmol/L (21.0-32.0); CREATININE - SERUM 1.5 mg/dL (0.6-1.3); POTASSIUM - SERUM 3.2 mmol/L (3.5-5.1); PROTEIN - SERUM 7.1 g/dL (6.4-8.2)
--- NOTE | 2016-10-21 06:30 | NUR ---
PT STAYED UP LATE BUT RESTED WELL AFTER MIDNIGHT. NO CONFUSION THIS SHIFT. PT TOOK SHOWER THIS MORNING. WILL CONTINUE TO MONITOR.
[2016-10-21 08:13] VITALS: BP 122/73
[2016-10-21 12:26] VITALS: BP 117/69
--- NOTE | 2016-10-21 14:23 | NUR ---
Nutrition Follow Up: Pt reported that his nausea was improved and his appetite is okay. Pt is eating 47% meal avg on a Regular diet. Meds and labs noted. Rec continue current diet. RD following.
--- NOTE | 2016-10-21 16:00 | NUR ---
PT NOTED TO HAVE HEMOPTOSIS. PT DENIES PAIN AT THIS TIME.
[2016-10-21 16:02] VITALS: BP 122/66
--- NOTE | 2016-10-21 19:52 | NUR ---
SITTING UP IN BED, NC IN PLACE, IV TO L CHEST INFUSING, ASSESSMENT COMPLETED, NO ACUTE DISTRESS NOTED, DENIES NEEDS AT THIS TIME, SR'S UP, CL IN REACH, WILL MONITOR
--- NOTE | 2016-10-21 21:26 | NUR ---
MEDS GIVEN PER MAR, MAGNESIUM RIDER HUNG PER E. PROTOCOL, YAQUELIN WELL, CL IN REACH
--- NOTE | 2016-10-21 21:30 | NUR ---
REFUSED PO KCL TO COVER E. PROTOCOL, WILL HANG IV RIDER WHEN AB'S AND MAG HAVE FINISHED INFUSING
--- NOTE | 2016-10-22 01:25 | NUR ---
KCL WALTER CHOI PER E. PROTOCOL, YAQUELIN WELL, CL IN REACH
[2016-10-22 04:00] VITALS: BP 113/75
--- NOTE | 2016-10-22 04:26 | NUR ---
PRN PERCOCET GIVEN FOR C/O MARTINEZ 06/06, BLOOD DRAWN FOR AM LABS WITH 10CC WASTED, LINE FLUSHED WITH 10 CC CHRIS BENZ PER DAYSI, YAQUELIN SALES, PT REQUEST PORTABLE O2 TANK SO HE CAN AMBULATE IN [place], PROVIDED, WILL MONITOR
--- NOTE | 2016-10-22 04:32 | NUR ---
C/O DIZZINESS, ADVISED AGAINST WALKING, IV FLUIDS RECONNECTED
[2016-10-22 04:41] LABS: BASOPHILS 0.1 % (0.0-2.0); EOSINOPHILS 0 % (0-7); HEMATOCRIT 25.3 % (42.0-54.0); IMMATURE GRANULOCYTES 0.9 % (0-5); LYMPHOCYTES 3.1 % (15-50); MCH 29.2 pg (26.0-34.0); MCHC 31.6 g/dL (31.0-37.0); MCV 92.3 fL (80.0-100.0); MEAN PLATELET VOLUME 9.5 fL (7.4-10.4); MONOCYTES 6.9 % (2-11); PLATELET COUNT 456 10x3/uL (130-400); RBC 2.74 10x6/uL (4.20-6.10); RDW 18.8 % (11.5-14.5); WBC 29.3 10x3/uL (4.8-10.8)
[2016-10-22 04:51] LABS: BILIRUBIN - TOTAL 0.82 mg/dL (0.2-1.3); CALCIUM 9.8 mg/dL (8.5-10.1); CARBON DIOXIDE 37.5 mmol/L (21.0-32.0); CREATININE - SERUM 1.4 mg/dL (0.6-1.3); MAGNESIUM - SERUM 1.6 mg/dL (1.8-2.4); PROTEIN - SERUM 7.3 g/dL (6.4-8.2)
[2016-10-22 04:52] LABS: ANION GAP 8.4 mmol/L (8-16); POTASSIUM - SERUM 2.9 mmol/L (3.5-5.1)
--- NOTE | 2016-10-22 05:56 | NUR ---
MED GIVEN PER OCT, REFUSED XARELTO DUE TO HEMOPTYSIS, LASIX HELD FOR LATER IN DAY DUE TO KCL RIDER RUNNING FOR LEVEL OF 2.9, CL IN REACH
--- NOTE | 2016-10-22 07:00 | NUR ---
REPORT RECIEVED ASSUMED CARE. PATIENT IN BED WITH IV INTACT. NO COMPLAINTS AT THIS TIME. CALL LIGHT WITHIN REACH.
[2016-10-22 10:36] VITALS: BP 107/65
[2016-10-22 11:32] VITALS: BP 148/78
[2016-10-22 15:12] VITALS: BP 132/76
--- NOTE | 2016-10-22 18:50 | NUR ---
PATIENT SITTING UP IN BED WITH IV INTACT. AWAITING ORDERS FOR HOSPICE. POSSIBLE DC HOME. FAMILY AT BEDSIDE. CALL LIGHT WITHIN REACH.
--- NOTE | 2016-10-22 19:00 | NUR ---
ASSESSMENT COMPLETED, NO ACUTE DISTRESS NOTED, HOSPICE NURSE PRESENT ALONG WITH SISTER, AWAITING DC ORDERS FROM JOÃO JONES IN REACH
--- NOTE | 2016-10-22 19:10 | NUR ---
Late Entry 1115 CM received MD order for [facility] consult for hospice at home. Patient family member came to the desk. He was planning on leaving and wanted to know when the hospice nurse would arrive. CM had meeting w/ another pt's family. Received contact information for Cassie Johnson and Mary Lowry. CM spoke briefly w/ the patient. He was short of breath and hoping to go home today. CM advised no d/c orders had been written. Patient had no preferred provider for hospice services. Wanted hospice w/ DR Thomas. Explained that would be [facility]. TC to [facility]. Spoke w/ Marah. Rec CB from Korin the nurse covering this area. She would not be onsite for approximately 1.5 hours. BONNY provided contact phone numbers for the family. Korin to contact family for time to meet. Reviewed the case. Gave community recreation coordinator packet for hospice nurse to review. Etta Lowry- sister- [phone] Cassie Hallman [phone] Await visit.
--- NOTE | 2016-10-22 19:11 | NUR ---
PRN PERCOCET GIVEN FOR C/O HEAD/BACK PAIN 06/06, YAQUELIN WELL, CL IN REACH, FAMILY IN ROOM
--- NOTE | 2016-10-22 20:09 | NUR ---
ORDERS RECIEVED FROM DR GREENFIELD TO IN PATIENT HOME WITH HOSPICE.
--- NOTE | 2016-10-22 20:52 | NUR ---
LEFT CHEST PORT IV ACCESS DC'D WITH NEEDLE INTACT, PRESSURE DSG APPLIED, DC INSTRUCTIONS GIVEN AND DISCUSSED WITH PATIENT AND SISTER, TAKEN TO FAMILY VEHICLE WITH ALL PERSONAL BELONGINGS VIA WHEELCHAIR BY WRAPPER HANDS SPRAYER, NO DISTRESS NOTED
== END 2016-10-22 23:22 | disposition home health service (06) | DRG 811 ==
LOC: D.MS 11:11
PROVIDERS: ADMIT Legal Medicine
DX: D64.81 Anemia due to antineoplastic chemotherapy (principal); J18.9 Pneumonia, unspecified organism; J96.21 Acute and chronic respiratory failure with hypoxia; A41.9 Sepsis, unspecified organism; E43 Unspecified severe protein-calorie malnutrition; J44.0 Chronic obstructive pulmonary disease with (acute) lower respiratory infection; C34.90 Malignant neoplasm of unspecified part of unspecified bronchus or lung; J90 Pleural effusion, not elsewhere classified; C78.00 Secondary malignant neoplasm of unspecified lung; J44.1 Chronic obstructive pulmonary disease with (acute) exacerbation; I95.9 Hypotension, unspecified; I10 Essential (primary) hypertension; Z86.718 Personal history of other venous thrombosis and embolism; Z87.891 Personal history of nicotine dependence; G89.29 Other chronic pain; E80.6 Other disorders of bilirubin metabolism; E83.42 Hypomagnesemia; Z66 Do not resuscitate